=== PATIENT | female | born 1950 | race Caucasian/White ===

== ENCOUNTER → 2017-01-15 | Outpatient (CLI) | payer OTHER ==
[~2017-01-15] MED LIST: ALLEGRA-D1 TAB.SR1 PO; ALPRAZOLAM PO; CELEXA PO; DIOVAN PO; LEXAPRO20 MG PO; MULTI-VITAMIN1 TAB PO; NEW BP MED PO; PREMARIN PO; SYNTHROID PO; VIT B-12 PO; VITAMIN D 4001 UDTAB PO; ZYRTEC PO
--- NOTE | ~2017-01-15 | BD1 ---
[facility] A Service of [place] & [facility] RADIOLOGY TEXT RESULTS PATIENT: HARLEY MURO LOCATION: [facility] : 50 UNIT #: [id number] AGE: [address]: Froilan Carvalho MD SEX: F ORDER DR: [id number] [facility] [address] [place], [place] [address] [id number] O MR#: [id number] Acc #: [id number] NAME: HARLEY MURO : 1950 SEX: F STUDY DATE/TIME: 01/15/2017 10:32 UNIT: [facility] ROOM: STUDY DESCRIPTION: BD Dexa Bone Dens 1+ Site Attending Physician: Froilan Carvalho M.D. Referring Physician: Froilan Carvalho M.D. Ordering Physician: Froilan Carvalho M.D. Primary Care Physician: Froilan Carvalho M.D. MEDICAL IMAGING REPORT This report is preliminary unless electronic signature is present EXAM DXA scan 01/15/2017 HISTORY Status post menopause with no hormone replacement therapy. Osteopenia. Hysterectomy with removal of 1 ovary. Thyroid medication levothyroxine use for 5 years. Hypertension with blood pressure medication. Family history of osteoporosis in mother. Smoking history for 30 years. FINDINGS Bone mineral density in the lumbar spine from L1-L4 is 0.813 g/cm2 which is 2.1 standard deviations below the mean when compared to the young adult reference population which is characteristic of osteopenia. This is 0.3 standard deviations below the mean when compared to the age-matched population. Compared with 12/26/2013 there has been a decrease in bone mineral density in the lumbar spine of 0.8%. Bone mineral density in the left femoral neck was 0.68 g/cm2 which is 1.5 standard deviations below the mean when compared to the young adult reference population which is characteristic of osteopenia. This is 0.1 standard deviations above the mean when compared to the age-matched population. IMPRESSION Bone mineral density in the lumbar spine and the left hip characteristic of osteopenia. Dictated by... Toy Castillo M.D. THIS IS AN ELECTRONICALLY VERIFIED REPORT Toy Castillo M.D. at 01/16/2017 8:12 AM FAM/maria victoria [facility]. [facility] A Service of [place] & [facility] RADIOLOGY TEXT RESULTS PATIENT: HARLEY MURO LOCATION: [facility] #: [id number] : 50 UNIT #: [id number] AGE: [address]: Froilan Carvalho MD SEX: F ORDER DR: TD: 01/15/2017 13:51 JOB #: [id number] MEDICAL IMAGING REPORT Page 1 of 1 COPY
== END | disposition home or self-care (01) ==
LOC: CWCC 10:13
DX: M81.0 Age-related osteoporosis without current pathological fracture (principal); M85.89 Other specified disorders of bone density and structure, multiple sites
CPT/HCPCS: 77080